=== PATIENT | male | born 1945 | race Caucasian/White ===

== ENCOUNTER 2018-01-08 12:56 | Day surgery (SDC) | payer MEDICARE ==
[2018-01-06 12:37] LABS: BASOPHILS % (AUTO) 0.7 % (0.0-5.0); EOSINOPHILS % (AUTO) 5.3 % (0.0-8.0); HEMATOCRIT 44.4 % (42-54); LYMPHOCYTES % (AUTO) 20.9 % (21.0-51.0); MEAN CORPUSCULAR HEMOGLOBIN 33.1 pg (27.0-33.0); MEAN CORPUSCULAR HGB CONC 33.8 g/dL (32.0-36.0); MONOCYTES % (AUTO) 8.9 % (3.0-13.0); NEUTROPHILS % (AUTO) 64.2 % (40.0-77.0); PLATELET COUNT (AUTO) 266 K/uL (130-400); RED BLOOD CELL COUNT(AUTO) 4.53 MIL/uL (4.50-6.20); RED CELL DISTRIBUTION WIDTH 13.8 % (11.0-15.5); WHITE BLOOD COUNT (AUTO) 10.4 K/uL (4.8-10.8)
[2018-01-06 12:46] VITALS: BP 123/70
[2018-01-06 12:53] LABS: CREATININE 1.8 mg/dL (0.5-1.5)
[~2018-01-08] VITALS: Ht 177.8 cm; Wt 112.7 kg
[2018-01-08] VITALS (20 sets, daily range): BP systolic 113–140; BP diastolic 58–92
[~2018-01-08 12:56] MED LIST: AEC81 PO; AMIO200T5 PO; ATOR20TA65 PO; FURO-152 PO; GABA-318 PO; METO-391 PO; SPIR25TA6 PO
[2018-01-08] MEDS ORDERED: LACTATED RINGERS 1000ML 1,000 ML IV ONE ×2 (13:18)
[2018-01-08] MEDS: CEFOXITIN SODIUM 2 GM VIAL ONE ×2 (13:42→13:55)
[2018-01-08] MEDS ORDERED: BUPIVACAINE/PF 0.25% 50ML VIAL IJ ONE (13:43)
[2018-01-08] MEDS ORDERED: ONDANSETRON HCL 4 MG/2 ML VIAL ONE (13:46)
[2018-01-08] MEDS ORDERED: PROPOFOL 10 MG/ML 20ML VIAL IV ONE (13:46)
[2018-01-08] MEDS ORDERED: MIDAZOLAM HCL 1 MG/ML 2ML VIAL ONE (13:46)
[2018-01-08] MEDS ORDERED: LIDOCAINE PF 2% 5ML ABBOJECT ONE (13:46)
[2018-01-08] MEDS ORDERED: NEOSTIGMINE 5MG/5ML SYR IV ONE (13:46)
[2018-01-08] MEDS ORDERED: DEXAMETHASONE SOD PHOSPHATE 10MG/ML 1ML VIAL ONE (13:46)
[2018-01-08] MEDS ORDERED: SUCCINYLCHOLINE 200MG/10ML SYR ONE (13:46)
[2018-01-08] MEDS ORDERED: ROCURONIUM 10MG/1ML SYR 10 MG/ML ML ONE (13:47)
[2018-01-08] MEDS ORDERED: FENTANYL CITRATE PF 50 MCG/1 ML 2ML VIAL ONE (13:47)
[2018-01-08] MEDS ORDERED: BACITRACIN 28.4 GM OINT TP ONE (14:50)
[2018-01-08] MEDS ORDERED: LIDOCAINE HCL 2% PF 20 ML JEL DISP.SYRIN MM ONE (14:50)
[2018-01-08] MEDS ORDERED: GLYCOPYRROLATE 1 MG/5 ML SYRINGE ONE (14:53)
[2018-01-08] MEDS ORDERED: ESMOLOL HCL 10 MG/ML 10 ML VIAL ONE (15:08)
[2018-01-08] MEDS ORDERED: IPRATROPIUM/ALBUTEROL SULFATE 3 ML SOLUTION IH ONE (15:26)
== END 2018-01-08 17:21 | disposition home or self-care (01) ==
LOC: DAH 12:56
PROVIDERS: ATTEND Student in an Organized Health Care Education/Training Program
DX: K64.8 Other hemorrhoids (principal); Z79.899 Other long term (current) drug therapy; G47.30 Sleep apnea, unspecified; E78.5 Hyperlipidemia, unspecified; I25.10 Atherosclerotic heart disease of native coronary artery without angina pectoris; I73.9 Peripheral vascular disease, unspecified; I11.0 Hypertensive heart disease with heart failure; I50.30 Unspecified diastolic (congestive) heart failure; Z95.1 Presence of aortocoronary bypass graft; Z98.890 Other specified postprocedural states; Z88.0 Allergy status to penicillin; Z68.36 Body mass index [BMI] 36.0-36.9, adult; E66.01 Morbid (severe) obesity due to excess calories; M51.16 Intervertebral disc disorders with radiculopathy, lumbar region
CPT/HCPCS: 36415; 46255; 80048; 85025; 88304; 93005; 94640; A4218; A4930; J0330; J0694; J1100; J2001; J2250; J2405; J2704; J2710; J3010; J3490 ×3; J7120 ×2

== ENCOUNTER 2018-01-28 09:28 | Emergency (ER) | payer MEDICARE ==
[2018-01-28 10:52] LABS: APPEARANCE,URINE Clear (CLEAR); BILIRUBIN,URINE Negative (NEGATIVE); COLOR,URINE Dark Yellow (YELLOW); GLUCOSE, URINE (UA) Negative (NEGATIVE); KETONES,URINE Negative (NEGATIVE); LEUKOCYTE ESTERASE ,URINE Trace (NEGATIVE); NITRATE,URINE Negative (NEGATIVE); OCCULT BLOOD,URINE Negative (NEGATIVE); PH,URINE 6.5 (5.0-8.0); PROTEIN,URINE POS 1+ (NEGATIVE)
[2018-01-28 11:05] LABS: BACTERIA,URINE Rare /HPF (None Seen); RBC,URINE None Seen /HPF (0-1); SQUAMOUS EPITHELIAL CELL,UR 0-2 /HPF (0-2); WBC,URINE 0-1 /HPF (0-1)
== END 2018-01-28 11:22 | disposition home or self-care (01) ==
LOC: EDH 09:28
DX: T81.30XA Disruption of wound, unspecified, initial encounter (principal); R50.9 Fever, unspecified; R11.0 Nausea; Z88.0 Allergy status to penicillin; Z72.0 Tobacco use
CPT/HCPCS: 81001

== ENCOUNTER 2018-12-02 07:31 | Day surgery (SDC) | payer MEDICARE ==
[2018-11-28 16:16] LABS: BASOPHILS % (AUTO) 0.8 % (0.0-5.0); EOSINOPHILS % (AUTO) 6.4 % (0.0-8.0); HEMATOCRIT 41.3 % (42-54); LYMPHOCYTES % (AUTO) 16.9 % (21.0-51.0); MEAN CORPUSCULAR HEMOGLOBIN 33.7 pg (27.0-33.0); MEAN CORPUSCULAR HGB CONC 33.5 g/dL (32.0-36.0); MEAN CORPUSCULAR VOLUME 100.8 fL (79-99); MONOCYTES % (AUTO) 9.2 % (3.0-13.0); NEUTROPHILS % (AUTO) 66.7 % (40.0-77.0); PLATELET COUNT (AUTO) 257 K/uL (130-400); RED BLOOD CELL COUNT(AUTO) 4.09 MIL/uL (4.50-6.20); RED CELL DISTRIBUTION WIDTH 14.9 % (11.0-15.5)
[2018-11-28 16:24] LABS: APPEARANCE,URINE Clear (CLEAR); BILIRUBIN,URINE Negative (NEGATIVE); COLOR,URINE Yellow (YELLOW); GLUCOSE, URINE (UA) Negative (NEGATIVE); KETONES,URINE Negative (NEGATIVE); LEUKOCYTE ESTERASE ,URINE Trace (NEGATIVE); NITRATE,URINE Negative (NEGATIVE); OCCULT BLOOD,URINE Negative (NEGATIVE); PROTEIN,URINE Negative (NEGATIVE)
[2018-11-28 16:31] LABS: CREATININE 1.8 mg/dL (0.5-1.5); POTASSIUM 4.4 mmol/L (3.5-5.1)
[2018-11-28 16:38] LABS: BACTERIA,URINE Rare /HPF (None Seen); SQUAMOUS EPITHELIAL CELL,UR Rare /HPF (0-2); WBC,URINE 0-1 /HPF (0-1)
[2018-11-28 16:44] VITALS: BP 126/66
--- NOTE | 2018-12-01 11:09 | NUR ---
EKG SPOKE WITH DR. MEÑO LI FOR PROCEDURE.
[2018-12-02] VITALS (18 sets, daily range): BP systolic 91–119; BP diastolic 46–74
[~2018-12-02] VITALS: Ht 175.3 cm; Wt 110.0 kg
[~2018-12-02 07:31] MED LIST changes: +CLOP75TA32 PO; -GABA-318 PO; +UMEC1DIS IH
[2018-12-02] MEDS ORDERED: LACTATED RINGERS 1000ML 1,000 ML IV ONE (08:10)
[2018-12-02] MEDS ORDERED: FENTANYL CITRATE PF 50 MCG/1 ML 2ML VIAL ONE ×2 (08:51→09:56)
[2018-12-02] MEDS ORDERED: PROPOFOL 10 MG/ML 20ML VIAL IV ONE (08:51)
[2018-12-02] MEDS ORDERED: MIDAZOLAM HCL 1 MG/ML 2ML VIAL ONE (08:51)
[2018-12-02] MEDS ORDERED: LIDOCAINE HCL MPF 1% 5ML VIAL ONE (08:52)
[2018-12-02] MEDS ORDERED: ROCURONIUM 10MG/1ML SYR 10 MG/ML ML ONE (08:56)
[2018-12-02] MEDS ORDERED: GLYCOPYRROLATE 1 MG/5 ML SYRINGE ONE (09:48)
[2018-12-02] MEDS ORDERED: NEOSTIGMINE 5MG/5ML SYR IV ONE (09:48)
[2018-12-02] MEDS ORDERED: ONDANSETRON HCL 4 MG/2 ML VIAL ONE (09:50)
[2018-12-02] MEDS ORDERED: DEXAMETHASONE SOD PHOSPHATE 10MG/ML 1ML VIAL ONE (09:50)
--- NOTE | 2018-12-02 11:16 | NUR ---
ASSESSMENT RECEIVED PT FROM PACU STAFF MICHOACANO OSUNA. PT AAOX3. DENIES ANY DISCOMFORT. AT BEDSIDE
--- NOTE | 2018-12-02 12:00 | NUR ---
DISCHARGE ORAL AND WRITTEN DISCHARGE INSTRUCTIONS GIVEN TO PT AND PTS . NO PRESCRIPTIONS GIVEN. DR. MURGUIA HERE. SPEAKING TO BOTH. NO OTHER QUESTIONS AT THIS TIME.
== END 2018-12-02 12:10 | disposition home or self-care (01) ==
LOC: DAH 07:31
PROVIDERS: ATTEND Surgery
DX: K60.3 Anal fistula (principal); G47.30 Sleep apnea, unspecified; I25.10 Atherosclerotic heart disease of native coronary artery without angina pectoris; I11.0 Hypertensive heart disease with heart failure; I50.9 Heart failure, unspecified; E66.01 Morbid (severe) obesity due to excess calories; M19.90 Unspecified osteoarthritis, unspecified site; Z68.35 Body mass index [BMI] 35.0-35.9, adult; Z88.0 Allergy status to penicillin; Z98.890 Other specified postprocedural states; Z79.82 Long term (current) use of aspirin; Z79.899 Other long term (current) drug therapy; Z87.891 Personal history of nicotine dependence; Z72.89 Other problems related to lifestyle; Z82.49 Family history of ischemic heart disease and other diseases of the circulatory system
CPT/HCPCS: 36415; 46600; 80048; 81001; 85025; 93005; J1100; J2250; J2405; J2704; J2710; J3010 ×2; J3490 ×2; J7120

== ENCOUNTER 2019-02-16 10:39 | Inpatient (IN) | payer MEDICARE ==
[~2019-02-16] VITALS: Ht 177.8 cm; Wt 102.6 kg
[2019-02-16 11:16] LABS: BASOPHILS % (AUTO) 0.6 % (0.0-5.0); EOSINOPHILS % (AUTO) 0.4 % (0.0-8.0); HEMATOCRIT 43.3 % (42-54); LYMPHOCYTES % (AUTO) 8.8 % (21.0-51.0); MEAN CORPUSCULAR HEMOGLOBIN 33.8 pg (27.0-33.0); MEAN CORPUSCULAR HGB CONC 33.4 g/dL (32.0-36.0); MEAN CORPUSCULAR VOLUME 101.3 fL (79-99); MONOCYTES % (AUTO) 9.3 % (3.0-13.0); NEUTROPHILS % (AUTO) 80.9 % (40.0-77.0); PLATELET COUNT (AUTO) 231 K/uL (130-400); RED BLOOD CELL COUNT(AUTO) 4.28 MIL/uL (4.50-6.20); RED CELL DISTRIBUTION WIDTH 13.6 % (11.0-15.5); WHITE BLOOD COUNT (AUTO) 11.2 K/uL (4.8-10.8)
[2019-02-16 11:22] LABS: CREATININE 1.7 mg/dL (0.5-1.5); POTASSIUM 5.1 mmol/L (3.5-5.1)
[2019-02-16] MEDS ORDERED: IPRATROPIUM 0.5 MG/2.5 ML INH IH ONE (11:23)
[2019-02-16] MEDS ORDERED: ALBUTEROL SULFATE 0.083% 2.5 MG/3 ML INH IH ONE (11:24)
[2019-02-16 11:26] LABS: ALBUMIN 3.7 g/dL (3.5-5.0); BILIRUBIN,TOTAL 0.5 mg/dL (0.2-1.0); TOTAL PROTEIN, SERUM 6.9 g/dL (6.0-8.3)
[2019-02-16 11:35] LABS: INR 1.04 (0.85-1.15); PARTIAL THROMBOPLASTIN TIME 23.7 SEC (26.3-35.5); PROTHROMBIN TIME 10.9 SEC (9.6-11.6)
[2019-02-16 11:47] LABS: B-TYPE NATRIURETIC PEPTIDE 324 pg/mL (0-100)
[2019-02-16] MEDS ORDERED: AZITHROMYCIN 500MG+NS 250ML 250 ML IV ONE (13:35)
[2019-02-16] MEDS ORDERED: METOPROLOL TARTRATE 25 MG TAB ONE (13:35)
[2019-02-16] MEDS ORDERED: FUROSEMIDE 10 MG/ML 4ML VIAL ONE (13:35)
[2019-02-16] MEDS ORDERED: METHYLPREDNISOLONE SOD SUCC 40MG/ML 1ML ONE ×2 (13:36→23:08)
[2019-02-16] MEDS ORDERED: SODIUM CHLORIDE 0.9% 50 ML IV ONE (14:57)
[2019-02-16] MEDS ORDERED: CEFTRIAXONE SODIUM 1 GM ONE (14:57)
[2019-02-16] MEDS ORDERED: ACETAMINOPHEN 325 MG TAB PO PRN (15:00)
[2019-02-16] MEDS ORDERED: LEVOFLOXACIN 500 MG/D5W 100 ML 100 ML IV SCH (15:00)
[2019-02-16] MEDS ORDERED: MORPHINE SULFATE 2 MG/ML 1ML SYG IVP PRN (15:00)
[2019-02-16] MEDS ORDERED: ONDANSETRON HCL 4 MG/2 ML VIAL IVP PRN (15:00)
[2019-02-16] MEDS ORDERED: POTASSIUM CHLORIDE 20 MEQ ERTAB PO PRN (16:15)
[2019-02-16] MEDS ORDERED: POTASSIUM CHLORIDE 20MEQ/100ML 100 ML IV PRN (16:15)
[2019-02-16] MEDS ORDERED: POTASSIUM CHLORIDE 10% ELIXIR 20 MEQ/15 ML UDCUP PO PRN (16:15)
[2019-02-16] MEDS ORDERED: LIDOCAINE HCL-MPF 1% 2ML VIAL IV PRN (16:15)
[2019-02-16 16:25] LABS: ABG BASE EXCESS -2.2 mmol/L (-2.0-3.0); ABG HCO3 21.5 mmol/L (21.0-28.0); ABG OXYGEN SATURATION 96.2 % (95.0-99.0); ABG PCO2 34 mmHg (35-48)
[2019-02-16] MEDS: ACETYLCYSTEINE 10% 100MG/ML 4ML VIAL IH SCH ×2 (18:58→22:15)
[2019-02-16] MEDS: IPRATROPIUM/ALBUTEROL SULFATE 3 ML SOLUTION IH SCH ×2 (18:58→22:15)
[2019-02-16] MEDS: FUROSEMIDE 10 MG/ML 4ML VIAL IVP SCH (21:00)
[2019-02-16] MEDS ORDERED: METOPROLOL TARTRATE 25 MG TAB PO SCH (21:00)
[2019-02-16] MEDS ORDERED: METHYLPREDNISOLONE SOD SUCC 40MG/ML 1ML IVP SCH (21:00)
[2019-02-16 21:27] LABS: CREATINE KINASE, TOTAL 67 U/L (21-232); MYOGLOBIN 166 ng/mL (10-92); TROPONIN I < 0.04 ng/mL (0.00-0.06)
[2019-02-16] MEDS: METHYLPREDNISOLONE SOD SUCC 40MG/ML 1ML IVP SCH (22:30)
[2019-02-17] MEDS ORDERED: FURO20TA6 PO (00:22)
[2019-02-17] MEDS: ACETYLCYSTEINE 10% 100MG/ML 4ML VIAL IH SCH ×5 (02:06→22:39)
[2019-02-17] MEDS: IPRATROPIUM/ALBUTEROL SULFATE 3 ML SOLUTION IH SCH ×6 (02:06→22:39)
[2019-02-17] MEDS ORDERED: FUROSEMIDE 10 MG/ML 4ML VIAL ONE ×3 (02:53→20:48)
[2019-02-17] MEDS ORDERED: LEVOFLOXACIN 500 MG/D5W 100 ML 0 ML ONE (02:53)
[2019-02-17] MEDS ORDERED: METOPROLOL TARTRATE 25 MG TAB ONE ×2 (02:53→10:50)
[2019-02-17] MEDS: FUROSEMIDE 10 MG/ML 4ML VIAL IVP SCH ×3 (05:00→21:00)
[2019-02-17] MEDS ORDERED: IPRATROPIUM/ALBUTEROL SULFATE 3 ML SOLUTION IH ONE ×4 (05:18→17:28)
[2019-02-17 06:13] LABS: HEMATOCRIT 45.8 % (42-54); MEAN CORPUSCULAR HEMOGLOBIN 33.8 pg (27.0-33.0); MEAN CORPUSCULAR HGB CONC 33.6 g/dL (32.0-36.0); MEAN CORPUSCULAR VOLUME 100.5 fL (79-99); PLATELET COUNT (AUTO) 301 K/uL (130-400); RED BLOOD CELL COUNT(AUTO) 4.56 MIL/uL (4.50-6.20); RED CELL DISTRIBUTION WIDTH 14.1 % (11.0-15.5); WHITE BLOOD COUNT (AUTO) 15.7 K/uL (4.8-10.8)
[2019-02-17 06:14] LABS: CARBON DIOXIDE 23 mmol/L (21-32); CHLORIDE 101 mmol/L (101-111); CREATINE KINASE, TOTAL 62 U/L (21-232); CREATININE 2.1 mg/dL (0.5-1.5); GLOMERULAR FILTR. RATE CALC 33 mL/min (>60); GLUCOSE,RANDOM 185 mg/dL (70-105); MYOGLOBIN 216 ng/mL (10-92); PHOSPHORUS 4.6 mg/dL (2.5-4.9); POTASSIUM 4.9 mmol/L (3.5-5.1); SODIUM SERUM 138 mmol/L (136-145); TROPONIN I < 0.04 ng/mL (0.00-0.06); UREA NITROGEN, BLOOD 47 mg/dL (7-18)
[2019-02-17 06:30] LABS: B-TYPE NATRIURETIC PEPTIDE 447 pg/mL (0-100)
[2019-02-17] MEDS ORDERED: METHYLPREDNISOLONE SOD SUCC 40MG/ML 1ML ONE ×2 (07:40→20:48)
[2019-02-17] MEDS: METHYLPREDNISOLONE SOD SUCC 40MG/ML 1ML IVP SCH ×2 (09:00→21:00)
[2019-02-17] MEDS ORDERED: LEVOFLOXACIN 500 MG/D5W 100 ML 100 ML IV SCH (11:30)
--- NOTE | 2019-02-17 11:47 | NUR ---
DCP:HOME Sw met with pt who lives with Peggy Peña [phone]. Pt reports at home is is very independent, drives, or in home care services. Pt uses CPAP and O2 concentrator serviced by [facility]. Pt denies dc needs and plan is home at dc Addendum: 02/17/19 at 1149 by MARTA OHARA Amended: Links added.
[2019-02-17] MEDS ORDERED: LEVOFLOXACIN 500 MG/D5W 100 ML 100 ML ONE (12:40)
[2019-02-17] MEDS ORDERED: AZITHROMYCIN 500MG+NS 250ML 250 ML IV ONE (14:44)
[2019-02-17] MEDS ORDERED: CEFTRIAXONE SODIUM 1 GM ONE (16:01)
[2019-02-17] MEDS ORDERED: METOPROLOL TARTRATE 50 MG TAB ONE (20:48)
[2019-02-17] MEDS ORDERED: AMIODARONE HCL 200 MG TABLET PO ONE (20:48)
[2019-02-17] MEDS ORDERED: ATORVASTATIN CALCIUM 20 MG TABLET ONE (20:48)
[2019-02-17] MEDS: AMIODARONE HCL 200 MG TABLET PO SCH (21:00)
[2019-02-17] MEDS: METOPROLOL TARTRATE 50 MG TAB PO SCH (21:00)
[2019-02-17] MEDS: ATORVASTATIN CALCIUM 20 MG TABLET PO SCH (21:00)
[2019-02-17 21:33] VITALS: BP 144/84
--- NOTE | 2019-02-17 23:00 | NUR ---
Pt. is alert and oriented denies chest pain,no shortness of breath.Instructed to use call light for assistance.Pt. is using his own CPAP machine.
[2019-02-17 23:08] VITALS: BP 108/71
[2019-02-18] MEDS: IPRATROPIUM/ALBUTEROL SULFATE 3 ML SOLUTION IH SCH ×3 (01:15→10:00)
[2019-02-18] MEDS: ACETYLCYSTEINE 10% 100MG/ML 4ML VIAL IH SCH ×3 (01:15→10:00)
[2019-02-18 03:44] VITALS: BP 109/67
[2019-02-18 04:37] LABS: HEMATOCRIT 46.9 % (42-54); MEAN CORPUSCULAR HEMOGLOBIN 33.6 pg (27.0-33.0); MEAN CORPUSCULAR VOLUME 101.7 fL (79-99); PLATELET COUNT (AUTO) 278 K/uL (130-400); RED BLOOD CELL COUNT(AUTO) 4.61 MIL/uL (4.50-6.20); RED CELL DISTRIBUTION WIDTH 13.7 % (11.0-15.5); WHITE BLOOD COUNT (AUTO) 22.2 K/uL (4.8-10.8)
[2019-02-18 04:52] LABS: B-TYPE NATRIURETIC PEPTIDE 235 pg/mL (0-100)
[2019-02-18 04:55] LABS: CREATININE 2.3 mg/dL (0.5-1.5); MAGNESIUM 2.4 mg/dL (1.80-2.40); PHOSPHORUS 4.9 mg/dL (2.5-4.9); POTASSIUM 4.8 mmol/L (3.5-5.1)
[2019-02-18] MEDS: FUROSEMIDE 10 MG/ML 4ML VIAL IVP SCH (05:38)
[2019-02-18] MEDS ORDERED: ACETYLCYSTEINE 10% 100MG/ML 4ML VIAL ONE (06:49)
[2019-02-18] MEDS ORDERED: IPRATROPIUM/ALBUTEROL SULFATE 3 ML SOLUTION IH ONE (06:49)
[2019-02-18 07:33] VITALS: BP 122/65
[2019-02-18] MEDS: ASPIRIN 81 MG EC TAB PO SCH (07:52)
[2019-02-18] MEDS: METHYLPREDNISOLONE SOD SUCC 40MG/ML 1ML IVP SCH ×2 (07:52→09:36)
[2019-02-18] MEDS: SPIRONOLACTONE 25 MG TAB PO SCH (07:52)
[2019-02-18] MEDS: AMIODARONE HCL 200 MG TABLET PO SCH ×2 (07:52→20:41)
[2019-02-18] MEDS: METOPROLOL TARTRATE 50 MG TAB PO SCH ×2 (07:52→20:41)
--- NOTE | 2019-02-18 08:00 | NUR ---
ASSESSMENT PT IS AAOX3 DENIES CP DENIES SOB DENIES NV NO COMPLAINTS RESTING IN BED, AM MEDS GIVEN. CALL LIGHT WITHIN REACH. PENDING DIALYSIS TODAY, DIALYSIS NURSE AWARE. Addendum: 02/18/19 at 0852 by MONISHA ZIMMER RN RN NO DIALYSIS PENDING, PATIENT IS NOT DIALYSIS
[2019-02-18 11:53] VITALS: BP 114/69
[2019-02-18] MEDS ORDERED: AZITHROMYCIN 500MG+NS 250ML 250 ML IV SCH (14:00)
[2019-02-18 15:27] VITALS: BP 113/73
[2019-02-18] MEDS ORDERED: CEFTRIAXONE SODIUM 1 GM IVP SCH (16:00)
[2019-02-18] MEDS: IPRATROPIUM 0.5 MG/2.5 ML INH IH PRN ×2 (18:42→23:30)
[2019-02-18 20:39] VITALS: BP 111/71
[2019-02-18] MEDS: ATORVASTATIN CALCIUM 20 MG TABLET PO SCH (20:41)
--- NOTE | 2019-02-18 21:00 | NUR ---
PT ABLE TO AMBULATE, HOME CPAP IN PLACE. PT STATES FEELING MUCH MORE IMPROVED. NO DISTRESS NOTED. MINIMAL SOB. STATES HAS CHRONIC CONSTIPATION.
[2019-02-19] VITALS: BP 119/68
[2019-02-19 04:34] VITALS: BP 148/88
[2019-02-19 07:52] VITALS: BP 135/78
[2019-02-19 08:25] LABS: HEMATOCRIT 47.2 % (42-54); MEAN CORPUSCULAR HEMOGLOBIN 33.7 pg (27.0-33.0); MEAN CORPUSCULAR HGB CONC 33.6 g/dL (32.0-36.0); MEAN CORPUSCULAR VOLUME 100.2 fL (79-99); NUCLEATED RED BLOOD CELLS 0.1 % (0.0-0.19); PLATELET COUNT (AUTO) 276 K/uL (130-400); RED CELL DISTRIBUTION WIDTH 13.7 % (11.0-15.5); WHITE BLOOD COUNT (AUTO) 17.7 K/uL (4.8-10.8)
[2019-02-19 08:40] LABS: CREATININE 2.1 mg/dL (0.5-1.5)
[2019-02-19] MEDS: SPIRONOLACTONE 25 MG TAB PO SCH (08:47)
[2019-02-19] MEDS: METOPROLOL TARTRATE 50 MG TAB PO SCH (08:47)
[2019-02-19] MEDS: ASPIRIN 81 MG EC TAB PO SCH (08:48)
[2019-02-19] MEDS: AMIODARONE HCL 200 MG TABLET PO SCH (08:48)
[2019-02-19] MEDS: METHYLPREDNISOLONE SOD SUCC 40MG/ML 1ML IVP SCH (08:50)
[2019-02-19] MEDS ORDERED: FUROSEMIDE 40 MG TABLET PO SCH (09:00)
[2019-02-19 09:28] LABS: LYMPHOCYTES % (MANUAL) 5 % (22-44); MAN.DIFF COMMENT-IMPRESSION MANUAL DIFFERENTIAL; MONOCYTES % (MANUAL) 6 % (2-9); PLATELET MORPHOLOGY COMMENT ADEQUATE; SEGMENTED NEUTROPHILS % 89 % (40-70)
[2019-02-19 11:40] VITALS: BP 124/73
[2019-02-19] MEDS ORDERED: PRED20TA3 PO (12:37)
[2019-02-19] MEDS ORDERED: DOXY100C2 PO (12:37)
[2019-02-19] MEDS ORDERED: SPIR25TA PO (12:37)
[2019-02-19] MEDS ORDERED: FURO40TA7 PO (12:37)
--- NOTE | 2019-02-19 13:30 | NUR ---
PT D/C HOME BY CHARGE NURSE MARIANGEL. PT IN NO DISTRESS, AAOX3, NO SOB, DENIES ANY DISTRESS.
[2019-02-20] MEDS ORDERED: SPIRONOLACTONE 25 MG TAB PO SCH (09:00)
== END 2019-02-19 13:44 | disposition home or self-care (01) | DRG 291 ==
LOC: EDH 10:39 → EDHIP 13:15 → 2DH 02-17 21:16
PROVIDERS: ADMIT Internal Medicine; ATTEND Internal Medicine
PROC: 5A09357 Assistance with Respiratory Ventilation, Less than 24 Consecutive Hours, Continuous Positive Airway Pressure (ICD-10-PCS; principal; 2019-02-18)
DX: I13.0 Hypertensive heart and chronic kidney disease with heart failure and stage 1 through stage 4 chronic kidney disease, or unspecified chronic kidney disease (principal); J18.9 Pneumonia, unspecified organism; J96.21 Acute and chronic respiratory failure with hypoxia; I50.21 Acute systolic (congestive) heart failure; J44.0 Chronic obstructive pulmonary disease with (acute) lower respiratory infection; J44.1 Chronic obstructive pulmonary disease with (acute) exacerbation; G47.33 Obstructive sleep apnea (adult) (pediatric); E66.9 Obesity, unspecified; N18.3 Chronic kidney disease, stage 3 (moderate); Z96.653 Presence of artificial knee joint, bilateral; I25.10 Atherosclerotic heart disease of native coronary artery without angina pectoris; E78.5 Hyperlipidemia, unspecified; I73.9 Peripheral vascular disease, unspecified; Z87.891 Personal history of nicotine dependence; Z98.1 Arthrodesis status; Z95.1 Presence of aortocoronary bypass graft; I25.2 Old myocardial infarction; Z68.32 Body mass index [BMI] 32.0-32.9, adult
CPT/HCPCS: 36415; 36600; 71045; 71046; 71250; 80048; 80053; 82550; 82803; 83735; 83874; 83880; 84100; 84145; 84443; 84484; 85025; 85027; 85610; 85730; 87804; 93005; 93306; 94640; 94664; 94668; 97039; G0378; J0456; J0696; J1940; J1956; J2920; J7608

== ENCOUNTER 2019-07-01 08:56 | Day surgery (SDC) | payer MEDICARE ==
[~2019-07-01] VITALS: Ht 175.3 cm; Wt 105.7 kg
[~2019-07-01 08:56] MED LIST changes: -AMIO200T5 PO; +AMIO200T6 PO; -CLOP75TA32 PO; -FURO-152 PO; +FURO20TA4 PO; +SODIUM CHLORIDE 0.9% 1000ML 1,000 ML IV ONE; +SPIR25TA PO; -SPIR25TA6 PO; -UMEC1DIS IH
--- NOTE | 2019-07-01 10:45 | NUR ---
NURSING REPORTED TO DR MARTIN AND JAVIER KING THAT PT TOOK HIMSELF OF [facility] 6 WKS AGO AND IC ENGINEER NOT AWARE NO NEW ORDERS RECD Addendum: 07/01/19 at 1104 by ERASMO PAULA RN Amended: Links added.
[2019-07-01 10:47] VITALS: BP 126/77
[2019-07-01] MEDS ORDERED: FLUT1BLS3 IH (10:59)
[2019-07-01] MEDS ORDERED: THEOPHYLLINE (10:59)
[2019-07-01] MEDS ORDERED: ELIQUIS (10:59)
[2019-07-01] MEDS ORDERED: IPRATROPIUM 0.5 MG/2.5 ML INH IH ONE (11:02)
[2019-07-01] MEDS ORDERED: PROPOFOL 10 MG/ML 20ML VIAL IV ONE (11:40)
[2019-07-01] MEDS ORDERED: PHENYLEPHRINE HCL 10 MG/ML 1ML VIAL IV ONE (12:09)
[2019-07-01 12:35] VITALS: BP 107/58
[2019-07-01 12:40] VITALS: BP 109/50
[2019-07-01 12:46] VITALS: BP 110/58
[2019-07-01 12:50] VITALS: BP 104/65
[2019-07-01 12:57] LABS: BASOPHILS % (AUTO) 1.2 % (0.0-5.0); EOSINOPHILS % (AUTO) 5.6 % (0.0-8.0); HEMATOCRIT 39.6 % (42-54); LYMPHOCYTES % (AUTO) 15.2 % (21.0-51.0); MEAN CORPUSCULAR HEMOGLOBIN 32.3 pg (27.0-33.0); MEAN CORPUSCULAR HGB CONC 31.1 g/dL (32.0-36.0); MEAN CORPUSCULAR VOLUME 103.9 fL (79-99); MONOCYTES % (AUTO) 7.6 % (3.0-13.0); NEUTROPHILS % (AUTO) 69.6 % (40.0-77.0); PLATELET COUNT (AUTO) 290 K/uL (130-400); RED BLOOD CELL COUNT(AUTO) 3.81 MIL/uL (4.50-6.20); RED CELL DISTRIBUTION WIDTH 14.4 % (11.0-15.5); WHITE BLOOD COUNT (AUTO) 9.9 K/uL (4.8-10.8)
[2019-07-01 13:00] VITALS: BP 119/75
[2019-07-01 13:11] LABS: CREATININE 1.9 mg/dL (0.5-1.5)
[2019-07-01 13:13] LABS: INR 1.12 (0.85-1.15)
[2019-07-01 13:15] LABS: ALBUMIN 2.6 g/dL (3.5-5.0); BILIRUBIN,TOTAL 0.6 mg/dL (0.2-1.0); TOTAL PROTEIN, SERUM 6.7 g/dL (6.0-8.3)
== END 2019-07-01 13:10 | disposition home or self-care (01) ==
LOC: ENDO 08:56 → DAH 08:56 → ENDO 13:10
PROVIDERS: ATTEND Internal Medicine Gastroenterology
DX: D12.0 Benign neoplasm of cecum (principal); I85.00 Esophageal varices without bleeding; K64.0 First degree hemorrhoids; K63.89 Other specified diseases of intestine; K57.30 Diverticulosis of large intestine without perforation or abscess without bleeding; K52.9 Noninfective gastroenteritis and colitis, unspecified; K31.89 Other diseases of stomach and duodenum; E78.5 Hyperlipidemia, unspecified; G47.30 Sleep apnea, unspecified; J44.9 Chronic obstructive pulmonary disease, unspecified; M19.90 Unspecified osteoarthritis, unspecified site; I10 Essential (primary) hypertension; Z88.0 Allergy status to penicillin; Z88.1 Allergy status to other antibiotic agents; Z98.890 Other specified postprocedural states; Z79.899 Other long term (current) drug therapy; Z79.82 Long term (current) use of aspirin; Z87.891 Personal history of nicotine dependence; Z72.89 Other problems related to lifestyle; Z82.49 Family history of ischemic heart disease and other diseases of the circulatory system
CPT/HCPCS: 36415; 43239; 45380; 45385; 80053; 85025; 85610; 88305; 88341; 93005; 94640; A4215; A4221; A4222; A4223; A4606; A4620; A4649; A4663; J2370; J2704; J7030

== ENCOUNTER 2019-07-08 14:54 | Inpatient (IN) | payer MEDICARE ==
[~2019-07-08] VITALS: Ht 175.3 cm; Wt 112.1 kg
[~2019-07-08 14:54] MED LIST changes: +AMIO200T5 PO; -AMIO200T6 PO; +ELIQUIS; +FLUT1BLS3 IH; -SODIUM CHLORIDE 0.9% 1000ML 1,000 ML IV ONE; +THEOPHYLLINE
[2019-07-08] MEDS ORDERED: SODIUM CHLORIDE 0.9% 1000ML 1,000 ML IV ONE ×2 (15:42→19:51)
[2019-07-08] MEDS ORDERED: MORPHINE SULFATE 4 MG/1ML SYG ONE (15:43)
[2019-07-08] MEDS ORDERED: ONDANSETRON HCL 4 MG/2 ML VIAL ONE (15:43)
[2019-07-08 15:58] LABS: BASOPHILS % (AUTO) 0.5 % (0.0-5.0); EOSINOPHILS % (AUTO) 2.4 % (0.0-8.0); HEMATOCRIT 39.4 % (42-54); LYMPHOCYTES % (AUTO) 11.9 % (21.0-51.0); MEAN CORPUSCULAR HEMOGLOBIN 32.6 pg (27.0-33.0); MEAN CORPUSCULAR HGB CONC 32.2 g/dL (32.0-36.0); MONOCYTES % (AUTO) 7.9 % (3.0-13.0); NEUTROPHILS % (AUTO) 76.6 % (40.0-77.0); PLATELET COUNT (AUTO) 236 K/uL (130-400); RED CELL DISTRIBUTION WIDTH 14.3 % (11.0-15.5); WHITE BLOOD COUNT (AUTO) 10.3 K/uL (4.8-10.8)
[2019-07-08 16:03] LABS: CREATININE 1.6 mg/dL (0.5-1.5); POTASSIUM 3.3 mmol/L (3.5-5.1)
[2019-07-08 16:08] LABS: ALBUMIN 2.4 g/dL (3.5-5.0); BILIRUBIN,TOTAL 0.8 mg/dL (0.2-1.0); TOTAL PROTEIN, SERUM 6.8 g/dL (6.0-8.3)
[2019-07-08 17:51] LABS: INR 1.11 (0.85-1.15); PARTIAL THROMBOPLASTIN TIME 33.8 SEC (26.3-35.5); PROTHROMBIN TIME 11.9 SEC (9.6-11.6)
[2019-07-08] MEDS: SODIUM CHLORIDE 0.9% 1000ML 1,000 ML IV SCH (18:50)
[2019-07-08] MEDS ORDERED: LACTULOSE 20 GM/30 ML UDCUP PO PRN (19:00)
[2019-07-08] MEDS ORDERED: HYDRALAZINE HCL 20 MG/ML VIAL IV PRN (19:00)
[2019-07-08] MEDS ORDERED: ONDANSETRON HCL 4 MG/2 ML VIAL IV PRN (19:00)
[2019-07-08] MEDS ORDERED: POTASSIUM CHLORIDE 10MEQ/100ML 100 ML IV PRN (19:15)
[2019-07-08] MEDS ORDERED: POTASSIUM CHLORIDE 10% ELIXIR 20 MEQ/15 ML UDCUP PO PRN (19:15)
[2019-07-08] MEDS ORDERED: LIDOCAINE HCL-MPF 1% 2ML VIAL IV PRN (19:15)
[2019-07-08] MEDS ORDERED: ZOSYN 3.375GM+NS 50ML 50 ML IV ONE (19:51)
[2019-07-08] MEDS ORDERED: MORPHINE SULFATE 2 MG/ML 1ML SYG ONE (19:52)
[2019-07-08] MEDS ORDERED: FAMOTIDINE/PF 20 MG/2 ML VIAL IV ONE (19:52)
[2019-07-08] MEDS: ZOSYN 3.375GM+NS 50ML 50 ML IV SCH (21:00)
[2019-07-08 21:30] LABS: APPEARANCE,URINE Clear (CLEAR); BILIRUBIN,URINE Small (NEGATIVE); COLOR,URINE Dark Yellow (YELLOW); GLUCOSE, URINE (UA) Negative (NEGATIVE); KETONES,URINE Negative (NEGATIVE); LEUKOCYTE ESTERASE ,URINE Negative (NEGATIVE); NITRATE,URINE Negative (NEGATIVE); OCCULT BLOOD,URINE Negative (NEGATIVE); PH,URINE 5.5 (5.0-8.0); PROTEIN,URINE POS 1+ mg/dL (NEGATIVE)
--- NOTE | 2019-07-08 22:03 | NUR ---
Received report from Katina,patient has already received NS and Zosyn in ER.Patient is to be kept NPO post midnight.
[2019-07-08 22:14] LABS: BACTERIA,URINE Rare /HPF (None Seen); RBC,URINE 0-1 /HPF (0-1); SQUAMOUS EPITHELIAL CELL,UR Rare /HPF (0-2)
[2019-07-08 22:15] VITALS: BP 128/69
[2019-07-08 23:22] VITALS: BP 117/45
--- NOTE | 2019-07-09 | NUR ---
Patient instructed to be NPO at this time and he demonstrated understanding.Call light placed within reach ,instructed to call for assistance.
[2019-07-09] MEDS: MORPHINE SULFATE 2 MG/ML 1ML SYG IV PRN ×5 (00:34→20:40)
[2019-07-09 03:45] VITALS: BP 110/56
[2019-07-09] MEDS: ZOSYN 3.375GM+NS 50ML 50 ML IV SCH ×3 (04:46→20:41)
[2019-07-09 05:08] LABS: BASOPHILS % (AUTO) 0.6 % (0.0-5.0); EOSINOPHILS % (AUTO) 3.7 % (0.0-8.0); HEMATOCRIT 36.8 % (42-54); LYMPHOCYTES % (AUTO) 13.7 % (21.0-51.0); MEAN CORPUSCULAR HEMOGLOBIN 32.1 pg (27.0-33.0); MEAN CORPUSCULAR HGB CONC 31.8 g/dL (32.0-36.0); MEAN CORPUSCULAR VOLUME 101.1 fL (79-99); MONOCYTES % (AUTO) 8.9 % (3.0-13.0); NEUTROPHILS % (AUTO) 72.6 % (40.0-77.0); PLATELET COUNT (AUTO) 219 K/uL (130-400); RED BLOOD CELL COUNT(AUTO) 3.64 MIL/uL (4.50-6.20); RED CELL DISTRIBUTION WIDTH 14.6 % (11.0-15.5); WHITE BLOOD COUNT (AUTO) 9.7 K/uL (4.8-10.8)
[2019-07-09 05:22] LABS: CREATININE 1.6 mg/dL (0.5-1.5); POTASSIUM 3.3 mmol/L (3.5-5.1)
[2019-07-09 07:46] VITALS: BP 102/54
--- NOTE | 2019-07-09 07:48 | NUR ---
Patient remained NPO, bedside report given to incoming NOD using SBAr,all questions answered.
[2019-07-09] MEDS: FAMOTIDINE/PF 20 MG/2 ML VIAL IV SCH (10:27)
[2019-07-09 11:00] VITALS: BP_SYST 111; BP_SYST 154; BP_DIAS 54; BP_DIAS 67
[2019-07-09 15:57] VITALS: BP 105/58
[2019-07-09 19:50] VITALS: BP 122/67
[2019-07-09] MEDS: POTASSIUM CHLORIDE 20 MEQ ERTAB PO PRN (19:50)
--- NOTE | 2019-07-09 20:03 | NUR ---
CALL BACK FROM DR CRUZ .NOTIFIED OF CONSULT FOR CARDIAC CLEARANCE .
--- NOTE | 2019-07-09 20:05 | NUR ---
WOUND CULTURE WAS DONE IN ER
[2019-07-09] MEDS: SODIUM CHLORIDE 0.9% 1000ML 1,000 ML IV SCH (20:41)
--- NOTE | 2019-07-09 22:40 | NUR ---
here and ordered ECG and result showed to him,received order patient is cleared for surgery and Amiodarone 200 daily.
[2019-07-10] VITALS (27 sets, daily range): BP systolic 99–135; BP diastolic 52–77
--- NOTE | 2019-07-10 | NUR ---
Patient kept NPo at this time
[2019-07-10] MEDS: MORPHINE SULFATE 2 MG/ML 1ML SYG IV PRN ×2 (01:18→12:25)
[2019-07-10 05:06] LABS: BASOPHILS % (AUTO) 0.7 % (0.0-5.0); EOSINOPHILS % (AUTO) 5.7 % (0.0-8.0); HEMATOCRIT 36.7 % (42-54); LYMPHOCYTES % (AUTO) 15.6 % (21.0-51.0); MEAN CORPUSCULAR HEMOGLOBIN 33.3 pg (27.0-33.0); MEAN CORPUSCULAR HGB CONC 32.7 g/dL (32.0-36.0); MEAN CORPUSCULAR VOLUME 101.9 fL (79-99); MONOCYTES % (AUTO) 9.1 % (3.0-13.0); NEUTROPHILS % (AUTO) 68.3 % (40.0-77.0); PLATELET COUNT (AUTO) 220 K/uL (130-400); RED CELL DISTRIBUTION WIDTH 14.6 % (11.0-15.5); WHITE BLOOD COUNT (AUTO) 8.3 K/uL (4.8-10.8)
[2019-07-10 05:40] LABS: ALBUMIN 1.9 g/dL (3.5-5.0); BILIRUBIN,TOTAL 0.7 mg/dL (0.2-1.0); CREATININE 1.5 mg/dL (0.5-1.5); POTASSIUM 3.3 mmol/L (3.5-5.1); TOTAL PROTEIN, SERUM 5.9 g/dL (6.0-8.3)
[2019-07-10] MEDS: ZOSYN 3.375GM+NS 50ML 50 ML IV SCH ×3 (06:33→20:14)
--- NOTE | 2019-07-10 07:11 | NUR ---
Patient stable,alert and oriented and well conversant,taken to surgery per OR staff via bed.
[2019-07-10] MEDS ORDERED: PROPOFOL 10 MG/ML 20ML VIAL IV ONE (07:54)
[2019-07-10] MEDS ORDERED: LIDOCAINE PF 2% 5ML ABBOJECT ONE (07:54)
[2019-07-10] MEDS ORDERED: MIDAZOLAM HCL 1 MG/ML 2ML VIAL ONE (07:54)
[2019-07-10] MEDS ORDERED: FENTANYL CITRATE PF 50 MCG/1 ML 2ML VIAL ONE ×2 (07:55→09:33)
[2019-07-10] MEDS ORDERED: SUCCINYLCHOLINE CHLORIDE 20 MG/ML 10 ML VIAL ONE ×2 (08:00→08:01)
[2019-07-10] MEDS: AMIODARONE HCL 200 MG TABLET PO SCH (08:11)
[2019-07-10] MEDS: FAMOTIDINE/PF 20 MG/2 ML VIAL IV SCH (08:11)
[2019-07-10] MEDS ORDERED: PHENYLEPHRINE HCL 10 MG/ML 1ML VIAL IV ONE (09:29)
[2019-07-10] MEDS ORDERED: EPHEDRINE SULFATE 50 MG/ML AMPULE ONE (09:30)
[2019-07-10] MEDS ORDERED: ONDANSETRON HCL 4 MG/2 ML VIAL ONE (09:46)
[2019-07-10] MEDS ORDERED: DEXAMETHASONE SOD PHOSPHATE 10MG/ML 1ML VIAL ONE (09:46)
[2019-07-10] MEDS: SODIUM CHLORIDE 0.9% 1000ML 1,000 ML IV SCH ×2 (10:10→20:14)
[2019-07-10] MEDS: POTASSIUM CHLORIDE 20 MEQ ERTAB PO PRN ×3 (11:20→19:04)
[2019-07-10] MEDS: ACETAMINOPHEN-CODEINE 300/30MG TAB PO PRN ×2 (15:48→20:15)
--- NOTE | 2019-07-10 17:21 | NUR ---
INITIAL Patient lives with spouse, Peggy Peña, [phone]. Another emergency contact is brother in law, Shola Vital, [phone]. No home services. DME: O2 concentrator, BPM. O2 is thru [facility]. Patient is able to complete ADL's independently and drives. PCP is Dr. Ruel Salazar. Pharmacy is [facility] located on [facility]. DCP is home. Addendum: 07/10/19 at 1723 by TATI MONTANO SS Amended: Links added.
[2019-07-11 04:35] VITALS: BP 105/62
[2019-07-11] MEDS: ZOSYN 3.375GM+NS 50ML 50 ML IV SCH ×3 (05:36→20:59)
[2019-07-11 05:58] LABS: BASOPHILS % (AUTO) 0.3 % (0.0-5.0); EOSINOPHILS % (AUTO) 0.2 % (0.0-8.0); HEMATOCRIT 38.6 % (42-54); LYMPHOCYTES % (AUTO) 8.3 % (21.0-51.0); MEAN CORPUSCULAR HGB CONC 32.4 g/dL (32.0-36.0); MEAN CORPUSCULAR VOLUME 101.8 fL (79-99); MONOCYTES % (AUTO) 6.9 % (3.0-13.0); NEUTROPHILS % (AUTO) 83.2 % (40.0-77.0); PLATELET COUNT (AUTO) 229 K/uL (130-400); RED BLOOD CELL COUNT(AUTO) 3.79 MIL/uL (4.50-6.20); WHITE BLOOD COUNT (AUTO) 10.3 K/uL (4.8-10.8)
[2019-07-11 06:13] LABS: BILIRUBIN,TOTAL 0.5 mg/dL (0.2-1.0); CREATININE 1.5 mg/dL (0.5-1.5); POTASSIUM 4.4 mmol/L (3.5-5.1); TOTAL PROTEIN, SERUM 6.3 g/dL (6.0-8.3)
[2019-07-11 08:00] VITALS: BP 148/62
[2019-07-11 12:00] VITALS: BP 146/76
[2019-07-11] MEDS: AMIODARONE HCL 200 MG TABLET PO SCH (13:00)
[2019-07-11] MEDS: FAMOTIDINE/PF 20 MG/2 ML VIAL IV SCH (13:00)
[2019-07-11] MEDS: MORPHINE SULFATE 2 MG/ML 1ML SYG IV PRN ×2 (13:19→21:06)
[2019-07-11 15:59] VITALS: BP 113/64
--- NOTE | 2019-07-11 16:57 | NUR ---
CM NOTE CM discussed d/c planning with Dr. Cyr. States pt may possibly be pending a referral to [facility]. CM explained that Dr. Vivar will need to sign off from wound care management or possibly order home health for pt. States he will clarify with surgery. CM to f/u.
[2019-07-11 19:45] VITALS: BP 121/68
[2019-07-11 23:21] VITALS: BP 112/62
[2019-07-12] MEDS: SODIUM CHLORIDE 0.9% 1000ML 1,000 ML IV SCH (02:50)
[2019-07-12] MEDS: MORPHINE SULFATE 2 MG/ML 1ML SYG IV PRN ×4 (03:51→21:29)
[2019-07-12 04:04] VITALS: BP 130/67
[2019-07-12] MEDS: ZOSYN 3.375GM+NS 50ML 50 ML IV SCH ×3 (05:01→20:34)
[2019-07-12 05:17] LABS: BASOPHILS % (AUTO) 0.5 % (0.0-5.0); EOSINOPHILS % (AUTO) 0.8 % (0.0-8.0); HEMATOCRIT 39.2 % (42-54); LYMPHOCYTES % (AUTO) 12.1 % (21.0-51.0); MEAN CORPUSCULAR HEMOGLOBIN 33.2 pg (27.0-33.0); MEAN CORPUSCULAR HGB CONC 32.7 g/dL (32.0-36.0); MEAN CORPUSCULAR VOLUME 101.6 fL (79-99); MONOCYTES % (AUTO) 8.1 % (3.0-13.0); NEUTROPHILS % (AUTO) 76.9 % (40.0-77.0); PLATELET COUNT (AUTO) 239 K/uL (130-400); RED BLOOD CELL COUNT(AUTO) 3.86 MIL/uL (4.50-6.20); RED CELL DISTRIBUTION WIDTH 15.3 % (11.0-15.5); WHITE BLOOD COUNT (AUTO) 11.5 K/uL (4.8-10.8)
[2019-07-12 05:38] LABS: BILIRUBIN,TOTAL 0.5 mg/dL (0.2-1.0); CREATININE 1.5 mg/dL (0.5-1.5); TOTAL PROTEIN, SERUM 6.2 g/dL (6.0-8.3)
[2019-07-12 08:00] VITALS: BP 125/68
[2019-07-12] MEDS: FAMOTIDINE/PF 20 MG/2 ML VIAL IV SCH (08:16)
[2019-07-12] MEDS: AMIODARONE HCL 200 MG TABLET PO SCH (08:16)
--- NOTE | 2019-07-12 08:23 | NUR ---
CONSTIPATION/LACTULOSE PT OFFERED PRN LACTULOSE R/T NO BM SINCE 07/07. PT REFUSED. PER PT HE "KNOWS HIS BODY" AND WILL NOT HAVE BM UNTIL STEWARD CATHETER REMOVED. MADE AWARE
[2019-07-12 11:38] VITALS: BP 114/58
[2019-07-12] MEDS: POLYETHYLENE GLYCOL 3350 17 GM POWD.PACK PO SCH (13:38)
--- NOTE | 2019-07-12 15:09 | NUR ---
SET UP HOME HEALTH? REC'D REQUEST FROM DR. MILLS TO SET UP HOME HEALTH FOR PATIENT. ADVISED BOTH PATIENT AND MD THAT MEDICARE REQUIRES A FACE TO FACE BY PMD PRIOR TO HOME HEALTH CERT ORDERS. WILL NOT KNOW UNTIL TOMORROW WHETHER THIS HAS HAD A RECENT CHANGE- THERE ARE NEW TELE MEDICINE LAWS NOW IN PLACE SO PEOPLE DO NOT NEED TO GO TO THEIR PHYSICIANS UNNECESSARILY. CAN SEND ALL INFO TO DR. STEWART OFFICE AND HE CAN RX THE WOUND CARE FOR THE ANAL FISTULA. VERBAL NURA FOR HOME HEALTH OF DR. STEWART CHOOSING. PT ON CONTACT ISOLATION.
[2019-07-12 16:00] VITALS: BP 144/83
[2019-07-12 20:00] VITALS: BP 117/63
[2019-07-12 23:22] VITALS: BP 132/54
[2019-07-13] MEDS: MORPHINE SULFATE 2 MG/ML 1ML SYG IV PRN (01:40)
[2019-07-13] MEDS: IPRATROPIUM 0.5 MG/2.5 ML INH IH PRN ×2 (02:09→06:21)
[2019-07-13 03:32] VITALS: BP 115/74
[2019-07-13] MEDS: ZOSYN 3.375GM+NS 50ML 50 ML IV SCH ×2 (05:21→12:37)
[2019-07-13 05:33] LABS: BASOPHILS % (AUTO) 0.3 % (0.0-5.0); EOSINOPHILS % (AUTO) 0.9 % (0.0-8.0); HEMATOCRIT 38.5 % (42-54); LYMPHOCYTES % (AUTO) 9.9 % (21.0-51.0); MEAN CORPUSCULAR HEMOGLOBIN 32.5 pg (27.0-33.0); MEAN CORPUSCULAR HGB CONC 32.2 g/dL (32.0-36.0); MONOCYTES % (AUTO) 7.4 % (3.0-13.0); NEUTROPHILS % (AUTO) 80.5 % (40.0-77.0); PLATELET COUNT (AUTO) 204 K/uL (130-400); RED BLOOD CELL COUNT(AUTO) 3.81 MIL/uL (4.50-6.20); RED CELL DISTRIBUTION WIDTH 15.5 % (11.0-15.5); WHITE BLOOD COUNT (AUTO) 11.6 K/uL (4.8-10.8)
[2019-07-13 06:04] LABS: B-TYPE NATRIURETIC PEPTIDE 2010 pg/mL (0-100)
[2019-07-13 06:21] LABS: BILIRUBIN,TOTAL 0.8 mg/dL (0.2-1.0); CREATININE 1.3 mg/dL (0.5-1.5)
[2019-07-13 07:30] VITALS: BP 125/72
--- NOTE | 2019-07-13 08:00 | NUR ---
AM SHIFT ASSESSMENT.
[2019-07-13] MEDS: AMIODARONE HCL 200 MG TABLET PO SCH (10:00)
[2019-07-13] MEDS: POLYETHYLENE GLYCOL 3350 17 GM POWD.PACK PO SCH (10:00)
[2019-07-13] MEDS: FAMOTIDINE/PF 20 MG/2 ML VIAL IV SCH (10:00)
[2019-07-13 11:00] VITALS: BP 111/75
--- NOTE | 2019-07-13 12:20 | NUR ---
CM Note: [facility] pending approval CM faxed order, clinicals to [facility], confirmation received. Spoke to Flavia w/[facility] received clinicals, pending to get verbal order from Dr Salazar's office at this time, will call CM back once order received. Pt pending approval. Primary nurse aware. CM to cont to follow up.
--- NOTE | 2019-07-13 15:08 | NUR ---
CM Note: [facility] approval CM spoke to Flavia amaral/[facility] pt has approval. Safe to dc home via private car. Dr Meyer made aware. Primary nurse made aware. CM to cont to follow up.
--- NOTE | 2019-07-13 15:30 | NUR ---
REPORT CALLED IN TO [facility], TALKED TO NURSE LUPE,WOUND CARE INST GIVEN.
[2019-07-13] MEDS ORDERED: AMIO200T44 PO (15:45)
--- NOTE | 2019-07-13 17:00 | NUR ---
DISCHARGED NOW USING TEACH BACK, VERBALIZES UNDERSTANDING OF ALL INST GIVEN. SALINE LOCK REMOVED, PRINT SHOP ASSISTANT ALSO REMOVED, . WAITING DOWNSTAIRS.NO C/O OR CONCERNS VOICED AT TIME OF DC.
== END 2019-07-13 17:10 | disposition home health service (06) | DRG 574 ==
LOC: EDH 14:54 → EDHIP 18:50 → 3DH 21:07
PROVIDERS: ADMIT Hospitalist; ATTEND Hospitalist
PROC: 0WBM0ZZ Excision of Male Perineum, Open Approach (ICD-10-PCS; principal; 2019-07-10 09:05)
DX: L02.215 Cutaneous abscess of perineum (principal); N17.9 Acute kidney failure, unspecified; I50.42 Chronic combined systolic (congestive) and diastolic (congestive) heart failure; I13.0 Hypertensive heart and chronic kidney disease with heart failure and stage 1 through stage 4 chronic kidney disease, or unspecified chronic kidney disease; K61.1 Rectal abscess; R33.9 Retention of urine, unspecified; N18.3 Chronic kidney disease, stage 3 (moderate); E66.01 Morbid (severe) obesity due to excess calories; E87.6 Hypokalemia; G47.33 Obstructive sleep apnea (adult) (pediatric); I25.10 Atherosclerotic heart disease of native coronary artery without angina pectoris; I25.5 Ischemic cardiomyopathy; I48.91 Unspecified atrial fibrillation; I73.9 Peripheral vascular disease, unspecified; J44.9 Chronic obstructive pulmonary disease, unspecified; Z87.891 Personal history of nicotine dependence; Z95.1 Presence of aortocoronary bypass graft; Z98.1 Arthrodesis status; Z68.36 Body mass index [BMI] 36.0-36.9, adult; Z88.1 Allergy status to other antibiotic agents; Z88.0 Allergy status to penicillin; Z82.49 Family history of ischemic heart disease and other diseases of the circulatory system; B96.4 Proteus (mirabilis) (morganii) as the cause of diseases classified elsewhere
CPT/HCPCS: 36415; 71046; 72192; 76857; 80048; 80053; 81001; 82948; 83605; 83880; 85025; 85610; 85730; 87040; 87070; 87076; 87077; 87186; 93005; 94640; 94664; G0378; J0330; J1100; J2001; J2250; J2270; J2370; J2405; J2543; J2704; J3010; J3490; J7030

== ENCOUNTER 2019-08-08 13:06 | Emergency (ER) | payer BC, MEDICARE ==
[~2019-08-08 13:06] MED LIST changes: +AMIO200T44 PO; -AMIO200T5 PO
[2019-08-08] MEDS ORDERED: SODIUM CHLORIDE IV ONE ×2 (13:07)
[2019-08-08 14:05] LABS: EOSINOPHILS % (AUTO) 3.4 % (0.0-8.0); HEMATOCRIT 42.8 % (42-54); LYMPHOCYTES % (AUTO) 13.3 % (21.0-51.0); MEAN CORPUSCULAR HEMOGLOBIN 32.5 pg (27.0-33.0); MEAN CORPUSCULAR HGB CONC 33.4 g/dL (32.0-36.0); MEAN CORPUSCULAR VOLUME 97.3 fL (79-99); MONOCYTES % (AUTO) 7.4 % (3.0-13.0); NEUTROPHILS % (AUTO) 74.4 % (40.0-77.0); PLATELET COUNT (AUTO) 201 K/uL (130-400); RED CELL DISTRIBUTION WIDTH 16.4 % (11.0-15.5); WHITE BLOOD COUNT (AUTO) 10.2 K/uL (4.8-10.8)
[2019-08-08 14:33] LABS: CREATININE 1.6 mg/dL (0.5-1.5); POTASSIUM 3.9 mmol/L (3.5-5.1)
[2019-08-08 14:37] LABS: ALBUMIN 2.5 g/dL (3.5-5.0); TOTAL PROTEIN, SERUM 6.6 g/dL (6.0-8.3)
[2019-08-08] MEDS ORDERED: DIATR MEGLU/DIATRIZOATE SODIUM 30 ML BOTTLE ONE (15:52)
== END 2019-08-08 19:40 | disposition home or self-care (01) ==
LOC: EDH 13:06
DX: R10.9 Unspecified abdominal pain (principal); K91.1 Postgastric surgery syndromes
CPT/HCPCS: 36415; 74176; 80053; 82270; 83690; 85025; 96360; 96361; 99284; J7030; J7040; Q9963

== ENCOUNTER 2019-08-31 07:40 | Inpatient (IN) | payer MEDICARE ==
[2019-08-31] VITALS (23 sets, daily range): BP systolic 88–118; BP diastolic 41–79
[~2019-08-31] VITALS: Ht 175.3 cm; Wt 98.2 kg
[2019-08-31] MEDS ORDERED: LEVOFLOXACIN 500 MG/D5W 100 ML 100 ML ONE (08:02)
[2019-08-31] MEDS ORDERED: ONDANSETRON HCL 4 MG/2 ML VIAL ONE (08:02)
[2019-08-31 08:15] LABS: BASOPHILS % (AUTO) 0.6 % (0.0-5.0); HEMATOCRIT 40.5 % (42-54); LYMPHOCYTES % (AUTO) 6.1 % (21.0-51.0); MEAN CORPUSCULAR HEMOGLOBIN 32.7 pg (27.0-33.0); MEAN CORPUSCULAR HGB CONC 34.8 g/dL (32.0-36.0); MONOCYTES % (AUTO) 6.7 % (3.0-13.0); NEUTROPHILS % (AUTO) 84.8 % (40.0-77.0); PLATELET COUNT (AUTO) 282 K/uL (130-400); RED BLOOD CELL COUNT(AUTO) 4.31 MIL/uL (4.50-6.20); RED CELL DISTRIBUTION WIDTH 17.5 % (11.0-15.5); WHITE BLOOD COUNT (AUTO) 15.4 K/uL (4.8-10.8)
[2019-08-31 08:24] LABS: APPEARANCE,URINE CLEAR (CLEAR); BILIRUBIN,URINE MODERATE (NEGATIVE); COLOR,URINE YELLOW (YELLOW); GLUCOSE, URINE (UA) NEGATIVE (NEGATIVE); KETONES,URINE NEGATIVE (NEGATIVE); LEUKOCYTE ESTERASE ,URINE NEGATIVE (NEGATIVE); NITRATE,URINE NEGATIVE (NEGATIVE); OCCULT BLOOD,URINE TRACE-INTACT (NEGATIVE); PH,URINE 5.5 (5.0-8.0); PROTEIN,URINE 30 mg/dL (NEGATIVE); UROBILINOGEN,URINE 0.2 mg/dL (0.2-1.0)
[2019-08-31 08:28] LABS: POTASSIUM 4.7 mmol/L (3.5-5.1)
[2019-08-31 08:30] LABS: BACTERIA,URINE Few /HPF (None Seen); MUCUS,URINE Few LPF (None Seen); RBC,URINE 0-1 /HPF (0-1); SQUAMOUS EPITHELIAL CELL,UR Rare /HPF (0-2)
[2019-08-31 08:31] LABS: INR 1.6 (0.85-1.15); PARTIAL THROMBOPLASTIN TIME 33.3 SEC (26.3-35.5)
[2019-08-31 08:40] LABS: ALBUMIN 2.2 g/dL (3.5-5.0); BILIRUBIN,TOTAL 2.2 mg/dL (0.2-1.0); TOTAL PROTEIN, SERUM 6.6 g/dL (6.0-8.3); TROPONIN I 0.05 ng/mL (0.00-0.06)
[2019-08-31 11:23] LABS: ABG BASE EXCESS -3.9 mmol/L (-2.0-3.0); ABG HCO3 19.2 mmol/L (21.0-28.0); ABG OXYGEN SATURATION 92.5 % (95.0-99.0); ABG PCO2 30 mmHg (35-48)
[2019-08-31] MEDS ORDERED: SODIUM CHLORIDE 0.9% 1000ML 1,000 ML IV SCH (14:07)
[2019-08-31] MEDS ORDERED: NITROGLYCERIN 0.4 MG SL TAB SL PRN (14:15)
[2019-08-31] MEDS ORDERED: ACETAMINOPHEN 325 MG TAB PO PRN (14:15)
[2019-08-31] MEDS ORDERED: ONDANSETRON HCL 4 MG/2 ML VIAL IV PRN (14:15)
[2019-08-31] MEDS ORDERED: GUAIFENESIN-DM 200/20 MG 10 ML PO PRN (14:15)
[2019-08-31] MEDS ORDERED: PHARMACY COMMUNICATION MISC SCH (16:45)
[2019-08-31] MEDS: HEPARIN SODIUM 5000UNIT/ML 1ML VIAL SQ SCH (17:03)
[2019-08-31] MEDS: DOXYCYCLINE 100MG+NS 250ML 250 ML IV SCH (17:05)
[2019-08-31] MEDS ORDERED: COMPOUND IV MISC 1 EACH IVSOLN MISC PRN (20:45)
[2019-08-31] MEDS: METRONIDAZOLE 250MG/50ML 50 ML IV SCH (21:07)
[2019-08-31] MEDS: FAMOTIDINE/PF 20 MG/2 ML VIAL IV SCH (21:08)
--- NOTE | 2019-08-31 22:00 | NUR ---
Patient instructed to be NPO at this time for abdominal ultrasound tomorrow.Patient demonstrated understanding.
[2019-08-31] MEDS: FUROSEMIDE 10 MG/ML 2ML VIAL IV SCH (22:27)
[2019-08-31] MEDS: NOREPINEPHRINE 4MG/NS 250ML 250 ML IV SCH (23:07)
[2019-09-01] VITALS (74 sets, daily range): BP systolic 74–144; BP diastolic 36–111
[2019-09-01] MEDS: DOXYCYCLINE 100MG+NS 250ML 250 ML IV SCH ×2 (03:32→15:34)
[2019-09-01] MEDS: HEPARIN SODIUM 5000UNIT/ML 1ML VIAL SQ SCH ×2 (03:48→15:35)
[2019-09-01] MEDS: METRONIDAZOLE 250MG/50ML 50 ML IV SCH ×3 (05:28→22:20)
[2019-09-01 06:00] LABS: BASOPHILS % (AUTO) 0.3 % (0.0-5.0); EOSINOPHILS % (AUTO) 0.3 % (0.0-8.0); HEMATOCRIT 37.8 % (42-54); LYMPHOCYTES % (AUTO) 8.2 % (21.0-51.0); MEAN CORPUSCULAR HEMOGLOBIN 32.6 pg (27.0-33.0); MEAN CORPUSCULAR HGB CONC 34.7 g/dL (32.0-36.0); MONOCYTES % (AUTO) 7.4 % (3.0-13.0); NEUTROPHILS % (AUTO) 83.3 % (40.0-77.0); PLATELET COUNT (AUTO) 261 K/uL (130-400); RED BLOOD CELL COUNT(AUTO) 4.02 MIL/uL (4.50-6.20); WHITE BLOOD COUNT (AUTO) 14.9 K/uL (4.8-10.8)
[2019-09-01 06:31] LABS: ALBUMIN 1.9 g/dL (3.5-5.0); BILIRUBIN,TOTAL 1.7 mg/dL (0.2-1.0); CREATININE 1.7 mg/dL (0.5-1.5); POTASSIUM 4.1 mmol/L (3.5-5.1); TOTAL PROTEIN, SERUM 5.7 g/dL (6.0-8.3)
[2019-09-01 06:41] LABS: CRP QUANTITATIVE 232.4 mg/L (0.00-9.0)
[2019-09-01 07:07] LABS: ERYTHROCYTE SEDIMENTATION RATE 22 MM/HR (0-20)
[2019-09-01] MEDS ORDERED: FUROSEMIDE 10 MG/ML 4ML VIAL IV SCH (09:00)
[2019-09-01] MEDS: FUROSEMIDE 10 MG/ML 2ML VIAL IV SCH (09:20)
[2019-09-01] MEDS ORDERED: METHYLPREDNISOLONE SOD SUCC 40MG/ML 1ML ONE (09:48)
--- NOTE | 2019-09-01 10:44 | NUR ---
BHANU PLAN PATIENT IN ICU COVID UNIT NOT ABLE TO SEE PATIENT. CRISTIAN WILL CONTINUE TO FOLLOW. Addendum: 09/01/19 at 1059 by BLOSSOM BEVERLY RN CM Amended: Links added.
[2019-09-01 10:47] LABS: ABG BASE EXCESS -5.1 mmol/L (-2.0-3.0); ABG HCO3 17.6 mmol/L (21.0-28.0); ABG OXYGEN SATURATION 87.8 % (95.0-99.0); ABG PCO2 28 mmHg (35-48)
[2019-09-01] MEDS ORDERED: FUROSEMIDE 10 MG/ML 2ML VIAL ONE (10:52)
[2019-09-01] MEDS: METHYLPREDNISOLONE SOD SUCC 40MG/ML 1ML IVP SCH ×2 (10:55→21:12)
[2019-09-01] MEDS: CEFEPIME HCL 1 GM VIAL IVP SCH ×2 (11:47→23:11)
[2019-09-01] MEDS ORDERED: THIAMINE HCL 100 MG/ML 2ML VIAL IVP SCH (12:00)
[2019-09-01] MEDS: IPRATROPIUM 0.5 MG/2.5 ML INH IH SCH ×2 (12:00→18:00)
[2019-09-01 12:08] LABS: ABG HCO3 18.8 mmol/L (21.0-28.0); ABG OXYGEN SATURATION 91.8 % (95.0-99.0); ABG PCO2 29 mmHg (35-48)
[2019-09-01] MEDS ORDERED: SODIUM CHLORIDE 0.9% IV ONE (12:30)
[2019-09-01] MEDS ORDERED: THIAMINE HCL IV ONE (12:30)
[2019-09-01] MEDS ORDERED: FUROSEMIDE 10 MG/ML 2ML VIAL IV SCH ×2 (12:45→18:00)
[2019-09-01] MEDS ORDERED: Vitamin B Complex/Vit C/Folic Acid PO SCH (13:00)
[2019-09-01] MEDS: ALBUTEROL INHALER 90MCG/INH IH SCH ×3 (13:20→21:45)
[2019-09-01] MEDS ORDERED: ALBUMIN (HUMAN) 25% 50 ML IV SCH (16:20)
[2019-09-01] MEDS ORDERED: PHARMACY COMMUNICATION MISC SCH (16:30)
[2019-09-01] MEDS: PHARMACY COMMUNICATION MISC SCH ×2 (17:15→18:15)
[2019-09-01] MEDS: FUROSEMIDE 10 MG/ML 4ML VIAL IV SCH (17:54)
[2019-09-01] MEDS: FLUTICASONE/VILANTEROL 1 EACH AER.POW.BA IH SCH (17:54)
[2019-09-01] MEDS ORDERED: BUDESONIDE 0.5 MG/2 ML INH IH SCH (18:00)
[2019-09-01] MEDS: ALBUMIN (HUMAN) 25% 50 ML IV SCH (18:43)
[2019-09-01] MEDS: FAMOTIDINE/PF 20 MG/2 ML VIAL IV SCH (21:11)
[2019-09-01] MEDS: HALOPERIDOL LACTATE 5 MG/ML VIAL IM PRN (21:13)
--- NOTE | 2019-09-01 21:50 | NUR ---
PATIENT WAS RECEIVED IN BED, ALERT TO SELF BUT CONFUSED, AGITATED AND RESTLESS. PT ON HI [place] O2 40L @100%. CONT ON LEVOPHED 1.33 MCG/MIN/KG. F/C DRAINING TO GRAVITY WITH DARK BENSON URINE NOTED. BILATERAL MITTENS ON D/T PT PULLING ON LINES AND REMOVING PIVs. WILL CONT TO MONITOR CLOSELY. Addendum: 09/01/19 at 2203 by BERT KING RN RN Amended: Links added.
[2019-09-01] MEDS ORDERED: LORAZEPAM 2 MG/ML 1 ML VIAL ONE (23:43)
[2019-09-01] MEDS ORDERED: LORAZEPAM 2 MG/ML 1 ML VIAL IVP ONE (23:45)
--- NOTE | 2019-09-01 23:45 | NUR ---
RICKEY LESLIE COMB TENDER, INFORMED PATIENT IF STILL VERY AGITATED, COMBATIVE, REMOVING NC AND ATTEMPTING TO GET OUT OF BED. RECEIVED NEW ORDERS FOR ATIVAN 0.5MG IV ONCE. ORDER TO BE CARRIED OUT.
[2019-09-02] VITALS (65 sets, daily range): BP systolic 71–162; BP diastolic 26–96
--- NOTE | 2019-09-02 00:40 | NUR ---
PAGEAutumn LESLIE PUBLIC HEALTH EDUCATOR AGAIN, PT CONTINUES WITH NO CHANGE AFTER ATIVAN 0.5MG ADMINISTERED. INSTRUCTED TO PAGE CRITICAL CARE GAMING PIT BOSS. ORDER TO BE CARRIED OUT.
--- NOTE | 2019-09-02 00:50 | NUR ---
F/C CHANGED D/T PATIENT STATING HE NEEDS TO VOID. NOTE NO URINE IN TUBE. OUTPUT AT THIS TIME IS 350ML. WHEN F/C CHANGED, NO URINE OUT PUT NOTED. PATIENT IS ON LASIX 40 MG IV Q 12. WILL CONT TO MONITOR CLOSELY.
[2019-09-02] MEDS ORDERED: DEXMEDETOMIDINE HCL 200 MCG/2 ML VIAL IV ONE ×2 (01:38→01:44)
--- NOTE | 2019-09-02 02:22 | NUR ---
AT THIS TIME PT IS MORE CALM, ON PRECEDEX MAX DOSE OF 1.5MCG/KG/HR. WILL CONT TO MONITOR CLOSELY. Addendum: 09/02/19 at 0225 by BERT KING RN RN DR. VILLANUEVA WAS PREVIOUSLY PAGED PER VICE PRESIDENT CLIENT SERVICES INSTRUCTIONS, NO CALL BACK FROM DR. VILLANUEVA.
[2019-09-02] MEDS: DEXMEDETOMIDINE HCL 200 MCG in SODIUM CHLORIDE 0.9% 50 ML IV PRN ×3 (02:45→14:56)
[2019-09-02] MEDS: DOXYCYCLINE 100MG+NS 250ML 250 ML IV SCH ×2 (03:26→16:29)
[2019-09-02] MEDS: HEPARIN SODIUM 5000UNIT/ML 1ML VIAL SQ SCH ×2 (03:27→16:16)
--- NOTE | 2019-09-02 03:39 | NUR ---
PRECEDEX TURNED OFF AT THIS TIME. BP DECREASING TO 70s SYSTOLIC, LEVOPHED TITRATING PER PROTOCOL. PT REMAINS CALM, WILL CONT TO MONITOR CLOSELY.
[2019-09-02] MEDS: ALBUTEROL INHALER 90MCG/INH IH SCH ×4 (03:45→21:45)
[2019-09-02] MEDS: FUROSEMIDE 10 MG/ML 4ML VIAL IV SCH ×2 (04:00→16:00)
[2019-09-02] MEDS: METRONIDAZOLE 250MG/50ML 50 ML IV SCH ×3 (04:34→20:51)
[2019-09-02] MEDS: IPRATROPIUM 0.5 MG/2.5 ML INH IH SCH ×4 (06:00→17:53)
[2019-09-02 06:12] LABS: BASOPHILS % (AUTO) 0.1 % (0.0-5.0); EOSINOPHILS % (AUTO) 0.4 % (0.0-8.0); HEMATOCRIT 35.8 % (42-54); LYMPHOCYTES % (AUTO) 8.1 % (21.0-51.0); MEAN CORPUSCULAR HEMOGLOBIN 32.7 pg (27.0-33.0); MEAN CORPUSCULAR HGB CONC 34.6 g/dL (32.0-36.0); MEAN CORPUSCULAR VOLUME 94.5 fL (79-99); NEUTROPHILS % (AUTO) 85.7 % (40.0-77.0); PLATELET COUNT (AUTO) 233 K/uL (130-400); RED BLOOD CELL COUNT(AUTO) 3.79 MIL/uL (4.50-6.20); RED CELL DISTRIBUTION WIDTH 18.6 % (11.0-15.5); WHITE BLOOD COUNT (AUTO) 14.7 K/uL (4.8-10.8)
[2019-09-02 06:35] LABS: ALBUMIN 1.9 g/dL (3.5-5.0); CREATININE 2.1 mg/dL (0.5-1.5); MAGNESIUM 1.9 mg/dL (1.80-2.40); PHOSPHORUS 4.9 mg/dL (2.5-4.9); POTASSIUM 4.4 mmol/L (3.5-5.1); TOTAL PROTEIN, SERUM 5.4 g/dL (6.0-8.3)
[2019-09-02 06:55] LABS: B-TYPE NATRIURETIC PEPTIDE 2990 pg/mL (0-100)
[2019-09-02] MEDS: FLUTICASONE/VILANTEROL 1 EACH AER.POW.BA IH SCH (07:52)
--- NOTE | 2019-09-02 08:09 | NUR ---
PT WITH RESPIRATORY DISTRESS=TACHYPNEA,RETRACTION, DYSPNEA,MOUTH BREATHING,ANXIETY. REPOSTIONED OFR COMFORT-HIGH FLOW [address] CHRISTINE AT BEDSIDE. PT DNR.
[2019-09-02 08:10] LABS: ERYTHROCYTE SEDIMENTATION RATE 8 MM/HR (0-20)
[2019-09-02] MEDS: NOREPINEPHRINE 4MG/NS 250ML 250 ML IV SCH ×3 (08:53→22:23)
[2019-09-02] MEDS: ALBUMIN (HUMAN) 25% 50 ML IV SCH (08:54)
[2019-09-02] MEDS: METHYLPREDNISOLONE SOD SUCC 40MG/ML 1ML IVP SCH ×2 (08:54→20:51)
[2019-09-02] MEDS ORDERED: ERGOCALCIFEROL (VITAMIN D2) 50,000 UNIT CAPSULE PO SCH (09:00)
[2019-09-02] MEDS ORDERED: Vitamin B Complex/Vit C/Folic Acid PO SCH (09:00)
[2019-09-02] MEDS ORDERED: THIAMINE HCL 100 MG TABLET PO SCH (09:00)
[2019-09-02] MEDS: CEFEPIME HCL 1 GM VIAL IVP SCH ×2 (09:21→22:21)
--- NOTE | 2019-09-02 09:51 | NUR ---
HAND OFF REPORT GIVEN TO DAVID RÍOS. SPOKE TO ON PHONE AND GAVE HER AN UPDATE
[2019-09-02] MEDS: HALOPERIDOL LACTATE 5 MG/ML VIAL IM PRN (11:03)
--- NOTE | 2019-09-02 11:17 | NUR ---
RESTLESS PATIENT GIVEN HALDOL IM PER ORDERS. BP 98/46. PATIENT IS CURRENTLY ON PRECEDEX AT 0.2MCG INCREASED TO 0.3. ALSO RECEIVING LEVOPHED 6MCG/MIN.
--- NOTE | 2019-09-02 11:50 | NUR ---
VISITATION at 1 Sw contacted by CMD, pt not doing well, Per Chinyere Sellers, will be allowed to see pt for 15minutes to say goodbye. will have to follow protocol regarding PPE. Sw to contact and schedule time for visit sw called nathalia Peña [phone] and informed her of above. very grateful for this visit and will be here at 1 to see pt. SW to meet at ER entrance.
[2019-09-02] MEDS ORDERED: DOBUTAMINE 250MG/D5 250ML 250 ML IV SCH (12:15)
[2019-09-02] MEDS ORDERED: HEPARIN 25000 UNITS/250 ML D5W 250 ML IV SCH (12:15)
--- NOTE | 2019-09-02 12:21 | NUR ---
BHANU PLAN PATIENT IN COVID UNIT. UNSTABLE CRITICAL CARE. AIRPLANE AND ENGINE INSPECTOR ON CASE NOW DNR. Addendum: 09/02/19 at 1222 by BLOSSOM BEVERLY RN CM Amended: Links added.
[2019-09-02] MEDS ORDERED: LIDOCAINE HCL-MPF 1% 2ML VIAL IV PRN (12:30)
[2019-09-02] MEDS ORDERED: POTASSIUM CHLORIDE 10MEQ/100ML 100 ML IV PRN (12:30)
--- NOTE | 2019-09-02 13:10 | NUR ---
VISITING Sw escorted to 2nd floor. SW provided emotional support. Guy nurse escorted to unit to visit with her .
[2019-09-02 13:47] LABS: INR 2.12 (0.85-1.15); PARTIAL THROMBOPLASTIN TIME 40.2 SEC (26.3-35.5); PROTHROMBIN TIME 22.2 SEC (9.6-11.6)
[2019-09-02] MEDS ORDERED: ALBUMIN (HUMAN) 25% 50 ML IV SCH (16:00)
[2019-09-02] MEDS: FAMOTIDINE/PF 20 MG/2 ML VIAL IV SCH (20:51)
[2019-09-03 00:14] VITALS: BP 50/29
--- NOTE | 2019-09-03 00:27 | NUR ---
CALLED TO PRONOUNCE MONICA HERNANDEZ ON THIS DAY 09/03/19 @ 0027. NO APICAL OR CAROTID PULSE AUSCULTATED. NO RESPIRATIONS AUSCULTATED, AND NO PAPILLARY LIGHT REFLEXES NOTED BILATERALLY. NO FAMILY AT BEDSIDE. PENDING NOTIFICATION TO PHYSICIAN. NO AUTOPSY PER SPOUSE REGLA HERNANDEZ.
[2019-09-03] MEDS ORDERED: FUROSEMIDE 10 MG/ML 4ML VIAL IV SCH (09:00)
[2019-09-03] MEDS ORDERED: ALBUMIN (HUMAN) 25% 50 ML IV SCH (16:00)
== END 2019-09-03 00:21 | disposition expired | DRG 871 ==
LOC: EDH 07:40 → EDHIP 14:07 → 2CH 15:30
PROVIDERS: ADMIT Internal Medicine; ATTEND Internal Medicine
DX: A41.9 Sepsis, unspecified organism (principal); J18.9 Pneumonia, unspecified organism; E43 Unspecified severe protein-calorie malnutrition; I63.9 Cerebral infarction, unspecified; J96.21 Acute and chronic respiratory failure with hypoxia; R65.21 Severe sepsis with septic shock; I50.43 Acute on chronic combined systolic (congestive) and diastolic (congestive) heart failure; J44.0 Chronic obstructive pulmonary disease with (acute) lower respiratory infection; N17.9 Acute kidney failure, unspecified; I13.0 Hypertensive heart and chronic kidney disease with heart failure and stage 1 through stage 4 chronic kidney disease, or unspecified chronic kidney disease; I48.20 Chronic atrial fibrillation, unspecified; J44.1 Chronic obstructive pulmonary disease with (acute) exacerbation; G93.40 Encephalopathy, unspecified; Z66 Do not resuscitate; N18.9 Chronic kidney disease, unspecified; E66.9 Obesity, unspecified; E86.0 Dehydration; I25.10 Atherosclerotic heart disease of native coronary artery without angina pectoris; K70.31 Alcoholic cirrhosis of liver with ascites; K52.9 Noninfective gastroenteritis and colitis, unspecified; R57.0 Cardiogenic shock; Z20.828 Contact with and (suspected) exposure to other viral communicable diseases; W19.XXXA Unspecified fall, initial encounter; Y93.89 Activity, other specified; Y92.098 Other place in other non-institutional residence as the place of occurrence of the external cause; Y99.8 Other external cause status; Z68.32 Body mass index [BMI] 32.0-32.9, adult; Z87.891 Personal history of nicotine dependence; Z95.1 Presence of aortocoronary bypass graft; Z99.81 Dependence on supplemental oxygen; Z88.0 Allergy status to penicillin; Z88.8 Allergy status to other drugs, medicaments and biological substances; Z82.49 Family history of ischemic heart disease and other diseases of the circulatory system
CPT/HCPCS: 36415; 36600; 71045; 76700; 80053; 81001; 82306; 82550; 82607; 82728; 82746; 82803; 82948; 83605; 83615; 83735; 83874; 83880; 84100; 84145; 84484; 85025; 85378; 85610; 85651; 85730; 86140; 87040; 87088; 87633; 87635; 87804; 93005; 93306; 93356; 93970; 99291; A4357; G0378; J0692; J1250; J1630; J1644; J1940; J1956; J2060; J2405; J2920; J3411; J3490; P9047